=== PATIENT | female | born 1990 | race Hispanic/Latino ===

== ENCOUNTER → 2024-09-17 | Outpatient (REF) | payer OTHER | LOC: DX 09:47 | PROVIDERS: ATTEND Nurse Practitioner Family | DX: R13.10 Dysphagia, unspecified (principal) | CPT/HCPCS: 74220 ==

== ENCOUNTER → 2024-10-22 | Day surgery (SDC) | payer OTHER ==
[~2024-10-22] MED LIST: DEXAMETHASONE SOD PHOS INJ 4 MG/ML SDV ONE; IBUPROFEN100 M1 PO; LIDOCAINE 2% /EPINEPHRINE 20 ML SDV INJ ONE; ONDANSETRON HCL INJ 2MG/ML 2ML 2 MG/ML VIAL ONE; ONDANSETRON ODT8 MG PO; PROBIOTIC & AC1 EACH PO; PROPOFOL IV EMULSION 10 MG/ML 20 ML VIAL ONE; PROTONIX20 MG PO; [UNRECOGNIZED DRUG - OTHER]
[2024-10-22] MEDS: LACTATED RINGER'S 1,000 ML ONE (09:13)
[2024-10-22 11:22] VITALS: TEMP 97.2
[2024-10-22 11:42] VITALS: BP 110/70; PULSE 73; RESP 18; O2SAT 99
== END | disposition home or self-care (01) ==
LOC: OR 08:38
PROVIDERS: ATTEND Internal Medicine Gastroenterology
DX: K62.5 Hemorrhage of anus and rectum (principal); K59.00 Constipation, unspecified; K64.1 Second degree hemorrhoids; K29.70 Gastritis, unspecified, without bleeding; K21.9 Gastro-esophageal reflux disease without esophagitis; R13.10 Dysphagia, unspecified; R63.4 Abnormal weight loss; R76.0 Raised antibody titer; Z88.1 Allergy status to other antibiotic agents; Z88.8 Allergy status to other drugs, medicaments and biological substances; Z79.1 Long term (current) use of non-steroidal anti-inflammatories (NSAID); Z87.898 Personal history of other specified conditions
CPT/HCPCS: 45378; 81025; J1100; J2004; J2405; J2704; J7121